=== PATIENT | male | born 1955 | race Caucasian/White ===

== ENCOUNTER 2019-04-14 10:44 | Outpatient (REF) | payer OTHER, SELFPAY ==
[2019-04-14 22:09] LABS: BUN 20 mg/dL (7-18); CREATININE 1.11 mg/dL (0.70-1.30); Calcium 8.8 mg/dL (8.5-10.1); Chloride 103 mmol/L (98-107); Cholesterol 244 mg/dL (50-200); Glucose 110 mg/dL (70-100); HDL Cholesterol 41 mg/dL (40-60); LDL CHOLESTEROL 175 mg/dL (<100); Potassium 4.7 mmol/L (3.5-5.1); Sodium 140 mmol/L (136-145); Triglyceride 143 mg/dL (30-150)
== END 2019-04-14 11:04 ==
LOC: NCHCN 10:44
PROVIDERS: Visit Provider Internal Medicine
DX: E66.9 Obesity, unspecified (principal)
CPT/HCPCS: 80048; 80061; 83721

== ENCOUNTER 2021-01-08 15:01 | Outpatient (REF) | payer OTHER, SELFPAY ==
[2021-01-08 14:03] LABS: Anion Gap 10.3 mmol/L (3-11); BUN 21 mg/dL (7-18); CO2 27.7 mmol/L (21.0-32.0); Calcium 9.4 mg/dL (8.5-10.1); Calculated LDL 158 mg/dL (<100); Chloride 102 mmol/L (98-107); Cholesterol 232 mg/dL (<200); Glucose 115 mg/dL (74-106); HDL Cholesterol 41 mg/dL (40-60); Potassium 4.3 mmol/L (3.5-5.1); Sodium 140 mmol/L (136-145); Triglyceride 166 mg/dL (<150)
== END 2021-01-08 15:02 | disposition home or self-care (01) ==
LOC: NCHCN 15:01
PROVIDERS: Visit Provider Internal Medicine
DX: Z00.00 Encounter for general adult medical examination without abnormal findings (principal); E78.5 Hyperlipidemia, unspecified; R73.03 Prediabetes
CPT/HCPCS: 80048; 80061; 83036

== ENCOUNTER 2021-07-05 10:19 | Outpatient (REF) | payer OTHER, SELFPAY ==
[2021-07-05 14:03] LABS: Hemoglobin A1C 5.8 % (<5.7)
[2021-07-05 14:05] LABS: ALT 32 U/L (16-63); AST 20 U/L (15-37); Albumin 4.4 g/dL (3.4-5.0); Alkaline Phosphatase 73 U/L (46-116); Anion Gap 10.3 mmol/L (3-11); BUN 18 mg/dL (7-18); Bilirubin, Total 0.9 mg/dL (0.2-1.0); CO2 28.7 mmol/L (21.0-32.0); CREATININE 1.1 mg/dL (0.70-1.30); Calcium 9.2 mg/dL (8.5-10.1); Calculated LDL 171 mg/dL (<100); Chloride 103 mmol/L (98-107); Cholesterol 246 mg/dL (<200); Glucose 108 mg/dL (74-106); HDL Cholesterol 43 mg/dL (40-60); Potassium 4.5 mmol/L (3.5-5.1); Sodium 142 mmol/L (136-145); Total Protein 7.6 g/dL (6.4-8.2); Triglyceride 163 mg/dL (<150)
== END 2021-07-05 10:20 | disposition home or self-care (01) ==
LOC: NCHCN 10:19
PROVIDERS: Visit Provider Internal Medicine
DX: E78.5 Hyperlipidemia, unspecified (principal); R73.03 Prediabetes
CPT/HCPCS: 80053; 80061; 83036

== ENCOUNTER 2022-08-07 08:55 | Outpatient (REF) | payer MEDICARE, OTHER, SELFPAY ==
[2022-08-07 16:09] LABS: Hemoglobin A1C 5.7 % (<5.7)
[2022-08-07 16:42] LABS: Anion Gap 7.5 mmol/L (3-11); BUN 19 mg/dL (7-18); CO2 29.5 mmol/L (21.0-32.0); CREATININE 1.2 mg/dL (0.70-1.30); Calcium 9.6 mg/dL (8.5-10.1); Calculated LDL 179 mg/dL (<100); Chloride 102 mmol/L (98-107); Cholesterol 264 mg/dL (<200); Glucose 111 mg/dL (74-106); HDL Cholesterol 52 mg/dL (40-60); Potassium 4.4 mmol/L (3.5-5.1); Sodium 139 mmol/L (136-145); Triglyceride 165 mg/dL (<150)
[2022-08-08 20:34] LABS: PSA, Screening 7.3 ng/mL (<=4.5)
== END 2022-08-07 08:56 | disposition home or self-care (01) ==
LOC: NCHCN 08:55
PROVIDERS: Visit Provider Internal Medicine
DX: R73.03 Prediabetes (principal); Z12.5 Encounter for screening for malignant neoplasm of prostate; E78.5 Hyperlipidemia, unspecified; E66.9 Obesity, unspecified
CPT/HCPCS: 80048; 80061; 84153; 83036

== ENCOUNTER 2022-10-29 15:57 | Outpatient (REF) | payer MEDICARE, OTHER, SELFPAY ==
[2022-10-29 15:19] LABS: Calculated LDL 80 mg/dL (<100); Cholesterol 158 mg/dL (<200); HDL Cholesterol 48 mg/dL (40-60); Triglyceride 154 mg/dL (<150)
[2022-10-29 23:17] LABS: PSA, Diagnostic 7.4 ng/mL (<=4.5)
== END 2022-10-29 15:58 | disposition home or self-care (01) ==
LOC: NCHCN 15:57
PROVIDERS: PCP Internal Medicine; Visit Provider Internal Medicine
DX: E78.5 Hyperlipidemia, unspecified (principal); R97.20 Elevated prostate specific antigen [PSA]
CPT/HCPCS: 80061; 84153

== ENCOUNTER 2024-06-07 13:16 | Outpatient (REF) | payer MEDICARE, OTHER, SELFPAY ==
[2024-06-07 22:52] LABS: PSA, Diagnostic 42.6 ng/mL (<=4.5)
== END 2024-06-07 13:17 | disposition home or self-care (01) ==
LOC: NCHCN 13:16
PROVIDERS: PCP Internal Medicine; Visit Provider Internal Medicine
DX: R97.20 Elevated prostate specific antigen [PSA] (principal)
CPT/HCPCS: 84153